=== PATIENT | female | born 1995 ===

== ENCOUNTER 2025-08-18 17:29 | Emergency (ER) | payer SELFPAY ==
--- NOTE | 2025-08-18 17:48 | ED.CPR ---
HPI - CPR General Stated Complaint: code blue Time Seen by Provider: 08/18/25 17:37 History of Present Illness HPI narrative: This is a 29-year-old white female who presented to the ER in cardiopulmonary arrest. Upon arrival patient was unresponsive to verbal and noxious stimuli patient had no spontaneous respirations and no spontaneous heartbeat. A code blue was called and ACLS protocol was followed. The only other history is that the patient may have been a possible overdose prior to arrival the patient was given Narcan glucose and epinephrine. Review of Systems Review of Systems ROS Unobtainable: Unobtainable due to medical condition, Unobtainable due to mental status/LOC and Other Exam Narrative Exam Narrative: GENERAL: Patient arrived to the ER unresponsive to verbal and noxious stimuli no spontaneous pulse or respirations GCS was 3 HEAD: Atraumatic. Normocephalic. EYES: Pupils dilated and fixed. ENT: Airway patent. NECK: Trachea midline. Non tender CARDIOVASCULAR: No spontaneous heartbeat RESPIRATORY: Breasts bands positive and symmetrical with bagging no spontaneous respirations GASTROINTESTINAL: Abdomen soft, non-tender, nondistended. EXTREMITIES: No edema or joint tenderness. BACK: Nontender without deformity or crepitance. No flank tenderness. NEURO: GCS of 3 pupils dilated fixed SKIN: Mottled Course Orders Ordered: Discontinued Medications Midazolam HCl (Midazolam 5 Mg/Ml Vial) 4 mg IV NOW ONE Stop: 08/18/25 17:32 MDM - Cardiac Arrest/CPR MDM Narrative Medical decision making narrative: The patient arrived in cardiac arrest a code blue was called. An IO line was initiated in the left distal femur. Patient was given multiple rounds of IV bicarbonate IV calcium IV epinephrine. I initially tried to intubate the patient but she was clenched down so she was given IV midazolam IV etomidate and IV rocuronium and still could not intubate the patient. We did get a rectal temperature and she was euthymic. We did get a blood glucose and she was not hypoglycemic. Patient also received multiple doses of IV Narcan. At this point the patient did remain in asystole and with the pupils being dilated and fixed I decided to terminate resuscitation and pronounced the patient at 5:35 p.m. because the patient was in cardiac arrest she required because of visual attention for a total of 35 minutes of critical care time excluding procedures. Differential diagnosis [place] dysrhythmia overdose Discharge Plan Departure Patient Disposition: Clinical Impression: Cardiac arrest
--- NOTE | 2025-08-18 17:53 | PC.NURSE ---
Call from security, pt needs immediate assistance out of vehicle. On initial assessment, pt is mottled in color, apneic, and no pulse felt. prolonged downtime per good [employer] bus [employer]. Security was on the phone with 911 on multiple RNs arrival outside. CPR started. Please refer to external code paperwork for additional details.
--- NOTE | 2025-08-18 18:05 | RT ---
Code Blue ER 1, pt arrived by friend and no pulse detected. Pt bagged with 100% fio2 with CPR in progress. MD at bedside, pt dusky/blue. Code called at [id number].
--- NOTE | 2025-08-18 18:30 | PC.NURSE ---
Called organ procurement spoke to Janelle. Pt is potentially a tissue donor. Called and spoke to Karli, Supervisor Delivery Department which advised this is a quick print operator case. Karli will call back within the hour for an ETA tonight.
== END 2025-08-18 20:38 | disposition expired ==
PROVIDERS: Emergency Provider Emergency Medicine
DX: I46.9 Cardiac arrest, cause unspecified (principal)
CPT/HCPCS: 92950; 99281; 99285